=== PATIENT | female | born 1970 | race Caucasian/White ===

== ENCOUNTER → 2019-06-21 10:54 | Outpatient (CLI) | payer OTHER, SELFPAY ==
--- NOTE | 2019-06-21 | DI.US.S_ITS ---
PROCEDURE: US PERIPH VENOUS LOW EXTREM RT INDICATIONS: PAIN IN RT LOWER LEG TECHNIQUE: Real-time imaging, as well as color and pulse Doppler interrogation, were performed of the lower extremity deep veins from the inguinal ligament to the popliteal fossa. COMPARISON: None. FINDINGS: The common femoral, femoral and popliteal veins are normally compressible, and free of intraluminal thrombus. Color and pulse Doppler demonstrate normal phasic intraluminal flow. There is normal augmentation response to distal compression maneuver. IMPRESSION: No deep venous thrombosis identified within the right lower extremity. Dictated by: Baldomero Sol [facility] Interpreted: Luis Dennis MD on 06/21/2019 at 12:09 Approved by: Luis Dennis M.D. on 06/21/2019 at 14:55
--- NOTE | 2019-06-21 | DI.US.S_ITS ---
PROCEDURE: US EXTREMITY NONVASC LOWER RT INDICATIONS: PALP LUMP RT LEG TECHNIQUE: Real-time scanning was performed of the right mid lateral calf, with image documentation. COMPARISON: None. FINDINGS: Avascular, complex fluid collection present measuring 7.7 x 1.5 x 2.0 cm. IMPRESSION: Findings likely related to evolving hematoma given the history of prior trauma. Recommend clinical correlation and followup. Dictated by: Baldomero Sol [facility] Interpreted: Luis Dennis MD on 06/21/2019 at 12:09 Approved by: Luis Dennis M.D. on 06/21/2019 at 14:55
== END ==
PROVIDERS: Visit Provider Nurse Practitioner Family
DX: M79.661 Pain in right lower leg (principal); M79.89 Other specified soft tissue disorders
CPT/HCPCS: 76882; 93971